=== PATIENT | female | born 1975 | race Caucasian/White ===

== ENCOUNTER → 2016-11-08 | Outpatient (REF) | payer OTHER | LOC: M SFHCLERA 18:37 | PROVIDERS: ATTEND Nurse Practitioner Family | DX: T81.4XXA Infection following a procedure, initial encounter (principal); X58.XXXA Exposure to other specified factors, initial encounter; Y93.9 Activity, unspecified; Y92.9 Unspecified place or not applicable; Y99.8 Other external cause status ==

== ENCOUNTER → 2016-12-14 | Outpatient (CLI) | payer OTHER ==
--- NOTE | 2017-01-12 01:00 | ECWPNPC ---
PATIENT NAME: SENG BUENO : 1975 GENDER: FEMALE VISIT DATE: 12/14/2016 DISCHARGE DATE: 12/14/16 1417 VISIT LOCKED DATE TIME: PHYSICIAN: SOLEDAD AU RESOURCE: SOLEDAD AU REASON FOR APPOINTMENT 1. BILATERAL SHOULDER PAIN HISTORY OF PRESENT ILLNESS TODAY'S VISIT: NOTES: REFERRED BY [facility] FOR CHRONIC LEFT ANTERIOR SHOULDER PAIN WITH HX OF LABRUM TEAR AND DEGENERATIVE CHANGES ON MRI. IS CURRENTLY BEING SEEN BY DR. GE[place]NA DOWNS AT [facility] [place] AND RIGHT SHOULDER SURGERY IS SCHEDULED FOR 12/17/16HAD NEW MRI OF LEFT SHOULDER MRI LAST WEEK WHICH SHOWED NEW TEARS. INJURY OCCURED IN 2007 WITH DAMAGE TO BOTH SHOULDERS. HAD RECENT SURGERY TO LEFT SHOULDER 10/30/16. NO CURRENT PT THIS AREA IS STILL IN NEED OF SURGICAL INTERVENTION. IS NOT ABLE TO SLEEP, ESPECIALLY IN BED. HAS TRAPEZIUS MUSCLE BURNING DISCOMFORT BILATERALLY. IS ALSO EXPERIENCING NECK PAIN AND HEADACHES. HAS CONSTANT ACHE IN SHOULDERS - FEELS LIKE ITS CAUGHT. IS HAVING SORENESS IN WRISTS AND ELBOWS. HANDS ARE SWELLING. HAS USED MUSCLE RELAXERS AND RARE VALIUM. THIS HAS NOT BEEN HELPFUL. CURRENT MEDICATIONS TAKING IBUPROFEN 800 MG TABLET 1 TABLET WITH FOOD OR MILK ORALLY THREE TIMES A DAY TAKING ROXICODONE 5 MG TABLET 1 TABLET ORALLY EVERY 6 HRS TAKING OXYCODONE-ACETAMINOPHEN 5-325 MG TABLET 1 TABLET NEEDED ORALLY EVERY 6 HRS TAKING SENOKOT 8.6 MG TABLET 2 TABLETS AT BEDTIME NEEDED ORALLY ONCE A DAY NOT-TAKING BACTRIM DS 800-160 MG TABLET 1 TABLET ORALLY BID MEDICATION LIST REVIEWED AND RECONCILED WITH THE PATIENT PAST MEDICAL HISTORY ? MITRAL VALVE PROLAPSE ALLERGIES CEFTIN: AIRWAY : ALLERGY SURGICAL HISTORY SHOULDER SURGERY RIGHT BICEPT TENDON REPAIR 10/2014 SHOULDER SURGERY - FROZEN SHOULDER 10/2015 SHOULDER SURGERY - LEFT - BICEPT TENDON 10/2016 SHOULDER SURGERY - RIGHT SCHEDULED PROCEDURE 11/2016 SOCIAL HISTORY GENERAL: TOBACCO USE ARE YOU A:FORMER SMOKER HOW LONG HAS IT BEEN SINCE YOU LAST SMOKED?5-10 YEARS CAFFEINE CAFFEINE USE?YES HOW OFTEN AND HOW MUCH? 2-4 CUPS PER DAY HIV / HEP-C SCREENING HIV TEST OFFERED TO PATIENT:YES DATE OFFERED:11/08/2016 TEST ACCEPTED:NO REASON:PATIENT DECLINED HEP-C TEST OFFERED TO PATIENT:NO LEARNING BARRIERS / SPECIAL NEEDS BARRIERS TO LEARNING?NO HEARING IMPAIRED?NO VISION IMPAIRED?YES :CORRECTIVE LENSES GLASSES/CONTACTS COGNITIVELY IMPAIRED?NO READINESS TO LEARN?YES LEARNING PREFERENCES?NO LEARNING CAPABILITIES PRESENT?YES EMOTIONAL BARRIERS?NO SPECIAL DEVICES?NO NET MOBILE DEVELOPER NEEDED?NO NEW PATIENT PAIN DIARY PATIENT DESCRIBES PAIN :ACHING, BURNING, HAVE IT ALL THE TIME, SHARP, STABBING, TENDER, SORE, SHOOTING FROM 0-10, WHAT LEVEL IS YOUR PAIN TODAY?8 PRECIPITATING FACTORS CERTAIN MOVEMENTS TRIGGER PAIN AND PAIN ALSO TRIGGERED WHEN SITTING STILL FOR LONG PERIODS OF TIME ALLEVIATING FACTORS ICE, PAIN MEDS IMPACT ON FUNCTION AFFECTS ALL ASPECTS OF LIFE NAME OF PERSON DRIVING YOU HOME - FEDE IS THERE A CHANCE YOU COULD BE ? NO HAVE YOU BEEN SICK IN THE LAST WEEK (COLD, COUGH, FEVER, FLU, ETC) NO DO YOU TAKE ANY BLOOD THINNERS? NO DO YOU HAVE ANY RASHES OR OPEN SORES? NO ANY CHANGE IN BOWEL OR BLADDER CONTROL? CONSTIPATION ARE YOU ALLERGIC TO SHELLFISH OR IV DYE? NO ARE YOU DIABETIC? NO DO YOU HAVE A PACEMAKER OR DEFIBRILLATOR? NO ANY NEW PROBLEMS WITH MEDICINES OR NEW ALLERGIES NO ANY NEW PATTERNS OF PAIN OR NUMBNESS? PT STATES THAT MUSCLES IN CHEST AND UPPER BACK ARE IN CONSTANT STATE OF SPASM ANY CHANGE IN YOUR MEDICAL CONDITION? NO HAVE YOU FALLEN IN THE LAST 6 MONTHS? NO DO YOU USE ANY TYPE OF TOBACCO (SMOKE, SMOKELESS, CHEW, ETC.) NO ARE YOU ABUSED, NEGLECTED, OR IN AN UNSAFE ENVIRONMENT? NO DO YOU HAVE THOUGHTS OF HURTING YOURSELF OR SOMEONE ELSE? NO DO YOU NEED ANY PRESCRIPTIONS? PAIN MEDICATIONS, CONSTIPATION MEDICATIONS INTENSITY SCALE REVIEWED YES PAIN CLINIC PFS, CLERGY, PUBLIC HEALTH REFERRALS WAS THE PROVIDER NOTIFIED OF ANY PERTINENT INFO?YES HAS THE PATIENT BEEN EDUCATED REGARDING HIS/HER PLAN OF CARE?YES PLEASE DOCUMENT ANY ADDTIONAL DETAILS. ORIENTED TO PAIN CENTER, PAIN SCALE, AND STAFF HAS THE PATIENT BEEN EDUCATED REGARDING PAIN, THE RISK FOR PAIN, THE IMPORTANCE OF EFFECTIVE PAIN MANAGEMENT, AND THE PAIN ASSESSMENT PROCESS?YES PLEASE DOCUMENT ANY ADDTIONAL DETAILS. PT SCHEDULES, TREATMENT PLAN AND PAIN MANAGEMENT REVIEWED BY: NITHIN. HOSPITALIZATION/MAJOR DIAGNOSTIC PROCEDURE SHOULDER SURGERY WITH INTENSE PHYSICAL THERAPY 10/2015 REVIEW OF SYSTEMS FOLLOW-UP ROS: CARDIOLOGY: POSITIVE FOR HX OF MITRAL PROLAPSE. NO, NO PALPITATIONS . ENDOCRINOLOGY: NEGATIVE FOR DIABETES, , NEGATIVE FOR THYROID DYSFUNCTION . GI/ POSITIVE FOR, CONSTIPATION SECONDARY TO MEDS, NO HEME . NEUROLOGY: POSITIVE FOR, HEADACHES, NO SEIZURES - NO HI . PULMONOLOGY: NEGATIVE FOR, ASTHMA, BREATHING PROBLEMS, COUGH . PSYCHOLOGY: BECKS DEPRESSION INVENTORY DENIES SUICIDAL OR HOMICIDAL IDEATION . VITAL SIGNS WT 199 LBS, HT 69 IN, BMI 29.38 INDEX, BP 127/75 MM HG, HR 76 /MIN, RR 18 /MIN, TEMP 98.7 F, OXYGEN SAT % 100%, SAFE IN ENV? (Y/N) Y, NA INITIALS TX 13:13, REVIEWED BY: NITHIN. EXAMINATION GENERAL EXAMINATION: GENERAL APPEARANCE:WELL GROOMED, PLEASANT TO INTERACT WITH . PSYCHALERT , ORIENTED X 3 , APPROPRIATE MOOD AND AFFECT , EXCELLANT HISTORIAN . HEENT:NORMOCEPHALIC, NO LMPHADENOPATHY, NO THYROMEGLY . LUNGS:CLEAR TO AUSCULTATION BILATERALLY, NO WHEEZES, RALES OR RHONCHI . HEART:NORMAL S1S2, NO MURMURS, CLICK OR RUBS, NO CAROTID BRUITS . MUSCULOSKELETAL:WEAKNESS IN WITH FLEXION AND EXTENSION AT LEFT WRIST AND ELBOW. VERY POOR ROM AT BOT THOULDERS . EXQ TENDER OVER LEFT AC JOINT, BICEPS AND AT THE BICEPS TENDON ATTACHMENT. ABLE TO ABDUCT RIGHT SHOULDER TO 60 DEGREES, LEFT SHOULDER TO 30 DEGREES. TRIGGER POINTS AND TIGHT FIBROUS BANDS IDENTIFIED OVER BILATER TRAPEZIUS AND SUPRASCALENE MUSCLES BILATERALLY. . EXTREMITIES:NO EDEMA UPPER/LOWER EXTREMITIES. 2+ RADIAL PULSES BILATERALLY . SKIN:DRY, WARM, NO RASH OR SKIN LESIONS. NEUROLOGIC EXAM:CN'S II-XII GROSSLY INTACT. HYPERSENSITIVITY TO LIGHT TOUCH OVER BILATERAL AC JOINTS, RIGHT BICEPS . DIAGNOSTIC TESTS REVIEWEDMRI OF LEFT SHOULDER COMPLETED ON 08/28/16 DEMONSTRATES PARTIAL THICKNESS INTERSTITIAL TEAR OF THE SUPRSPINATUS TENDON. MILD INFRASPINATUS TENDINOPATHY WITHOUT TEAR. LATERAL ACROMIAL DOWNSLOPING WITH SMALL UNDERSURFACE OSTEOPHYTE RESULTS IN NARROWING OF THE SUBACROMIAL OUTLET . ASSESSMENTS LEFT ANTERIOR SHOULDER PAIN - M25.512 (PRIMARY) MYALGIA - M79.1 TREATMENT LEFT ANTERIOR SHOULDER PAIN START MOVANTIK TABLET, 25 MG, 1 TABLET IN THE MORNING, ORALLY, ONCE A DAY, 30 DAY(S), 30, REFILLS 0 START TIZANIDINE HCL TABLET, 4 MG, 1 TABLET NEEDED, ORALLY, THREE TIMES A DAY, 30 DAY(S), 90 TABLET, REFILLS 0 NOTES: MASSAGE THERAPY TO UPPER BACK, NECK, ANTERIOR CHEST WALL. CONSIDER BHAVESH [facility] - [phone] TIZANIDINE 1/2 - 1 TAB IN MORNING AND MIDDAY - 1 TO 11/2 TABS AT BEDTIME. CLINICAL NOTES: OFFICE NOTES, PHYSICAL EXAM AND TREATMENT PLANS REVIEWED FROM DOCUMENTATION OF DR GEORGIANA DOWNS, [facility] AND FROM [facility] RENU SCHMITZ MD, ISTOP REGISTRY REVIEWED AND DEMNOSTRATES COMPLLIANCE. PROCEDURE CODES FA211 ESTABILISHED PATIENT [facility] CHARGE DISPOSITION & COMMUNICATION FOLLOW UP 1 MONTH ELECTRONICALLY SIGNED BY TOÑA DE LA TORRE ON 01/11/2017 AT 05:49 PM EDT DISCLAIMER : THIS IS A VISIT SUMMARY EXTRACTED FROM THE [employer] CHART. IT IS NOT A COPY OF THE [employer] PROGRESS NOTE. CALEB
== END ==
LOC: M PAIN 12:30
PROVIDERS: ATTEND Nurse Practitioner Family
DX: M25.512 Pain in left shoulder (principal); M79.1 Myalgia; I34.1 Nonrheumatic mitral (valve) prolapse; R51 Headache; Z79.891 Long term (current) use of opiate analgesic; Z79.899 Other long term (current) drug therapy; Z87.891 Personal history of nicotine dependence; Z88.1 Allergy status to other antibiotic agents

== ENCOUNTER → 2017-01-11 | Outpatient (CLI) | payer OTHER ==
--- NOTE | 2017-02-12 01:58 | ECWPNPC ---
PATIENT NAME: SENG BUENO : 1975 GENDER: FEMALE VISIT DATE: 01/11/2017 DISCHARGE DATE: 01/11/17 1110 VISIT LOCKED DATE TIME: PHYSICIAN: SOLEDAD AU RESOURCE: SOLEDAD AU HISTORY OF PRESENT ILLNESS HISTORY OF PRESENT ILLNESS: PAIN THE PATIENT DESCRIBES THE PAIN... FALL RISK SCREENING: SCREENING :NO FALLS IN THE PAST YEAR TODAY'S VISIT: NOTES: RATES PAIN TODAY 8/10. DESCRIBES PAIN CONSTANT, ACHING, BURNING, SHARP AND STABBING TENDER, THROBBING AND SORE. S/P LEFT SHOULDER SURGERY. NOTES SIG DIFF IN GETTING SLEEP. CAN NOT FIND A COMFORTABLE POSITION. IS ALSO EXPERIENCING AN SEVERE ACHINESS IN LEFT ARM WHICH STOPS AT THE WRIST. IS ATTENDING PHYSICAL THERAPY CURRENTLY. HAS BEEN TO 2 SESSIONS - MASSAGE AND "NECK CRACKING" WERE DONE. HAS NOT YET BEEN STARTED ON ANY ROM WORK. IS LIMITED IN ADL'S. CURRENT MEDICATIONS TAKING IBUPROFEN 800 MG TABLET 1 TABLET WITH FOOD OR MILK ORALLY THREE TIMES A DAY TAKING ROXICODONE 5 MG TABLET 1 TABLET ORALLY EVERY 6 HRS TAKING MOVANTIK 25 MG TABLET 1 TABLET IN THE MORNING ORALLY ONCE A DAY TAKING TIZANIDINE HCL 4 MG TABLET 1 TABLET NEEDED ORALLY TAKE 1 TO 1 1/2 TABS THREE TIMES A DAY NEEDED FOR SPASMS NOT-TAKING OXYCODONE-ACETAMINOPHEN 5-325 MG TABLET 1 TABLET NEEDED ORALLY EVERY 6 HRS NOT-TAKING SENOKOT 8.6 MG TABLET 2 TABLETS AT BEDTIME NEEDED ORALLY ONCE A DAY NOT-TAKING BACTRIM DS 800-160 MG TABLET 1 TABLET ORALLY BID MEDICATION LIST REVIEWED AND RECONCILED WITH THE PATIENT PAST MEDICAL HISTORY ? MITRAL VALVE PROLAPSE ALLERGIES CEFTIN: AIRWAY : ALLERGY SURGICAL HISTORY SHOULDER SURGERY RIGHT BICEPT TENDON REPAIR 10/2014 SHOULDER SURGERY - FROZEN SHOULDER 10/2015 SHOULDER SURGERY - LEFT - BICEPT TENDON 10/2016 SHOULDER SURGERY - RIGHT SCHEDULED PROCEDURE 11/2016 SOCIAL HISTORY GENERAL: TOBACCO USE ARE YOU A:FORMER SMOKER HOW LONG HAS IT BEEN SINCE YOU LAST SMOKED?5-10 YEARS CAFFEINE CAFFEINE USE?YES HOW OFTEN AND HOW MUCH? 2-4 CUPS PER DAY HIV / HEP-C SCREENING HIV TEST OFFERED TO PATIENT:YES DATE OFFERED:11/08/2016 TEST ACCEPTED:NO REASON:PATIENT DECLINED HEP-C TEST OFFERED TO PATIENT:NO BAHAI [id number] AGNOSTIC LEARNING BARRIERS / SPECIAL NEEDS BARRIERS TO LEARNING?NO HEARING IMPAIRED?NO VISION IMPAIRED?YES :CORRECTIVE LENSES GLASSES/CONTACTS COGNITIVELY IMPAIRED?NO READINESS TO LEARN?YES LEARNING PREFERENCES?NO LEARNING CAPABILITIES PRESENT?YES EMOTIONAL BARRIERS?NO SPECIAL DEVICES?NO VISITOR SERVICES COORDINATOR NEEDED?NO NEW PATIENT PAIN DIARY PATIENT DESCRIBES PAIN :ACHING, BURNING, HAVE IT ALL THE TIME, SHARP, STABBING, TENDER, SORE, SHOOTING FROM 0-10, WHAT LEVEL IS YOUR PAIN TODAY?8 PRECIPITATING FACTORS CERTAIN MOVEMENTS TRIGGER PAIN AND PAIN ALSO TRIGGERED WHEN SITTING STILL FOR LONG PERIODS OF TIME ALLEVIATING FACTORS ICE, PAIN MEDS IMPACT ON FUNCTION AFFECTS ALL ASPECTS OF LIFE NAME OF PERSON DRIVING YOU HOME - FEDE IS THERE A CHANCE YOU COULD BE ? NO HAVE YOU BEEN SICK IN THE LAST WEEK (COLD, COUGH, FEVER, FLU, ETC) NO DO YOU TAKE ANY BLOOD THINNERS? NO DO YOU HAVE ANY RASHES OR OPEN SORES? NO ANY CHANGE IN BOWEL OR BLADDER CONTROL? CONSTIPATION ARE YOU ALLERGIC TO SHELLFISH OR IV DYE? NO ARE YOU DIABETIC? NO DO YOU HAVE A PACEMAKER OR DEFIBRILLATOR? NO ANY NEW PROBLEMS WITH MEDICINES OR NEW ALLERGIES NO ANY NEW PATTERNS OF PAIN OR NUMBNESS? PT STATES THAT MUSCLES IN CHEST AND UPPER BACK ARE IN CONSTANT STATE OF SPASM ANY CHANGE IN YOUR MEDICAL CONDITION? NO HAVE YOU FALLEN IN THE LAST 6 MONTHS? NO DO YOU USE ANY TYPE OF TOBACCO (SMOKE, SMOKELESS, CHEW, ETC.) NO ARE YOU ABUSED, NEGLECTED, OR IN AN UNSAFE ENVIRONMENT? NO DO YOU HAVE THOUGHTS OF HURTING YOURSELF OR SOMEONE ELSE? NO DO YOU NEED ANY PRESCRIPTIONS? PAIN MEDICATIONS, CONSTIPATION MEDICATIONS INTENSITY SCALE REVIEWED YES PAIN CLINIC PFS, CLERGY, PUBLIC HEALTH REFERRALS PFS REFERRAL NEEDED?NO CLERGY REFERRAL NEEDED?NO PUBLIC HEALTH REFERRAL NEEDED?NO WAS THE PROVIDER NOTIFIED OF ANY PERTINENT INFO?NO HAS THE PATIENT BEEN EDUCATED REGARDING HIS/HER PLAN OF CARE?YES PLEASE DOCUMENT ANY ADDTIONAL DETAILS. ORIENTED TO PAIN CENTER, PAIN SCALE, AND STAFF HAS THE PATIENT BEEN EDUCATED REGARDING PAIN, THE RISK FOR PAIN, THE IMPORTANCE OF EFFECTIVE PAIN MANAGEMENT, AND THE PAIN ASSESSMENT PROCESS?YES PLEASE DOCUMENT ANY ADDTIONAL DETAILS. PT SCHEDULES, TREATMENT PLAN AND PAIN MANAGEMENT REVIEWED BY: DS. HOSPITALIZATION/MAJOR DIAGNOSTIC PROCEDURE SHOULDER SURGERY WITH INTENSE PHYSICAL THERAPY 10/2015 REVIEW OF SYSTEMS REVIEWED BY: PROVIDER: SOLEDAD ALEJANDRO . CONSTITUTIONAL: ANY CHANGE IN YOUR MEDICAL CONDITION? NO . CHILLS NO . FEVER NO . INFECTION: DO YOU HAVE NEW INFECTIONS? NO . DO YOU HAVE HISTORY OF MRSA? NO . MUSCULOSKELETAL: ANY NEW PATTERNS OF PAIN OR NUMBNESS? PAIN SHOOTING DOWN LEFT ARM THAT WAS OPERATED ON . GASTROENTEROLOGY: ANY NEW CHANGE IN BOWEL CONTROL? NO - CONSTIPATION IMPROVED WITH MOVANTIK . GENITOURINARY: ANY NEW CHANGE IN BLADDER CONTROL? NO . IS THERE A CHANCE YOU COULD BE ? NO . HEMATOLOGY/LYMPH: DO YOU TAKE ANY BLOOD THINNERS? (FOR EXAMPLE- COUMADIN, PLAVIX, AGGRENOX, PLATEL, PRADAXA, OR XARELTO) NO . WHEN WAS YOUR LAST DOSE? DATE: TIME: . NEUROLOGY: HAVE YOU FALLEN IN THE PAST 6 MONTHS? NO . ANY NEW EXTREMITY NUMBNESS OR WEAKNESS? NO . CARDIOLOGY: DO YOU HAVE A PACEMAKER OR DEFIBRILLATOR? NO . RESPIRATORY: HAVE YOU BEEN SICK IN THE PAST WEEK? NO . FEVER NO . FLU LIKE SYMPTOMS? NO . COUGH NO . INTEGUMENTARY: DO YOU HAVE ANY RASHES OR OPEN SORES? NO . ALLERGIC/IMMUNO: ARE YOU ALLERGIC TO SHELLFISH OR IV DYE? NO . ANY NEW ALLERGIES? NO . PSYCHIATRIC: DO YOU HAVE THOUGHTS OF HURTING YOURSELF OR SOMEONE ELSE? NO . ARE YOU ABUSED, NEGLECTED, OR IN AN UNSAFE ENVIRONMENT? NO . ENDOCRINOLOGY: ARE YOU DIABETIC? NO . OTHER: DO YOU NEED ANY PRESCRIPTIONS? NO . IF YES, PLEASE LIST: ____ . ANY NEW PROBLEMS WITH YOUR MEDICATIONS? NO . WHEN DID YOU LAST EAT? ____ . WHEN DID YOU LAST DRINK? ____ . WHAT DID YOU LAST DRINK? ____ . NAME OF PERSON DRIVING YOU HOME? ____ . DO YOU HAVE ANY OTHER QUESTIONS OR CONCERNS NO . VITAL SIGNS WT 199 LBS, HT 69 IN, BMI 29.38 INDEX, BP 120/80 MM HG, HR 78 /MIN, RR 18 /MIN, TEMP 97.7 F, OXYGEN SAT % 99%, NA INITIALS AW 1012, REVIEWED BY: NL. EXAMINATION GENERAL EXAMINATION: PSYCHALERT , ORIENTED X 3 , APPROPRIATE MOOD AND AFFECT . LUNGS:CLEAR TO AUSCULTATION BILATERALLY, NO WHEEZES, RALES OR RHONCHI . HEART:NORMAL S1S2, NO MURMURS, CLICK OR RUBS, NO CAROTID BRUITS . MUSCULOSKELETAL:WEAKNESS IN BILATERAL UPPER EXTREMITIES WITH FLEXION AND EXTENSION AT LEFT WRIST AND ELBOW. VERY POOR ROM AT BOTH THOULDERS . EXQUISITE TENDER OVER LEFT AC JOINT, BICEPS AND AT THE BICEPS TENDON ATTACHMENT. ABLE TO ABDUCT RIGHT SHOULDER TO 60 DEGREES, LEFT SHOULDER TO 30 DEGREES. TRIGGER POINTS AND TIGHT FIBROUS BANDS IDENTIFIED OVER BILATER TRAPEZIUS AND SUPRASCALENE MUSCLES BILATERALLY. . EXTREMITIES:NO EDEMA UPPER/LOWER EXTREMITIES. 2+ RADIAL PULSES BILATERALLY . SKIN:DRY, WARM, NO RASH OR SKIN LESIONS. NEUROLOGIC EXAM:CN'S II-XII GROSSLY INTACT. HYPERSENSITIVITY TO LIGHT TOUCH OVER BILATERAL AC JOINTS, RIGHT BICEPS . ASSESSMENTS LEFT ANTERIOR SHOULDER PAIN - M25.512 (PRIMARY) MYOFASCIAL PAIN - M79.1 CHRONIC PRESCRIPTION OPIATE USE - Z79.891 TREATMENT LEFT ANTERIOR SHOULDER PAIN STOP ROXICODONE TABLET, 5 MG, 1 TABLET, ORALLY, EVERY 6 HRS START NUCYNTA TABLET, 75 MG, 1 TABLET, ORALLY, EVERY 6 HRS PRN PAIN MDD=4, 15 DAYS, 60, REFILLS 0 REFILL MOVANTIK TABLET, 25 MG, 1 TABLET IN THE MORNING, ORALLY, ONCE A DAY, 30 DAY(S), 30, REFILLS 0 REFILL TIZANIDINE HCL TABLET, 4 MG, 1 TABLET NEEDED, ORALLY, TAKE 1 TO 1 1/2 TABS THREE TIMES A DAY NEEDED FOR SPASMS, 30 DAY(S), 135, REFILLS 1 NOTES: NARCOTIC AGREEMENT TODAYURINE TOX TODAYCALL SURGEON REGARDING PHYSICAL THERAPY REQUIREMNTS - WHAT EXACTLY TO DO WITH THE SHOULDER. CLINICAL NOTES: ISTOP REGISTRY REVIEWED AND DEMNOSTRATES COMPLLIANCE (REF # [id number]). DENIES USE OF ILICIT SUBSTANCES. , RISKS AND BENEFITS OF NARCOTIC/OPIOD MEDICATIONS WERE REVIEWED WITH PATIENT - THIS INCLUDES BUT IS NOT LIMITED TO RISK OF DEPENDANCE/DEVELOPMENT OF ADDICTION, MOOD DISTURBANCE AND DEPRESSION, OSTEOPOROSIS, HORMONAL AND LABIDAL CHANGES, RESPIRATORY DEPRESSION AND . PATIENT IS ADVISED NOT TO DRIVE WHILE ON THESE MEDICATIONS. PROCEDURE CODES FA211 ESTABILISHED PATIENT [facility] CHARGE DISPOSITION & COMMUNICATION FOLLOW UP 26-28 DAYS (REASON: SHOULDER PAIN) ELECTRONICALLY SIGNED BY TOÑA DE LA TORRE ON 02/11/2017 AT 08:45 PM EST DISCLAIMER : THIS IS A VISIT SUMMARY EXTRACTED FROM THE [employer] CHART. IT IS NOT A COPY OF THE [employer] PROGRESS NOTE. MTDD
== END ==
LOC: M PAIN 09:45
PROVIDERS: ATTEND Nurse Practitioner Family
DX: M25.512 Pain in left shoulder (principal); M79.1 Myalgia; Z79.891 Long term (current) use of opiate analgesic; Z79.899 Other long term (current) drug therapy; Z87.891 Personal history of nicotine dependence; Z88.1 Allergy status to other antibiotic agents

== ENCOUNTER → 2017-02-15 | Outpatient (CLI) | payer OTHER ==
--- NOTE | 2017-02-18 00:27 | ECWPNPC ---
PATIENT NAME: SENG BUENO : 1975 GENDER: FEMALE VISIT DATE: 02/15/2017 DISCHARGE DATE: 02/15/17 1353 VISIT LOCKED DATE TIME: PHYSICIAN: SOLEDAD AU RESOURCE: SOLEDAD AU REASON FOR APPOINTMENT 1. SHOULDER PAIN HISTORY OF PRESENT ILLNESS HISTORY OF PRESENT ILLNESS: PAIN THE PATIENT DESCRIBES THE PAIN... FALL RISK SCREENING: SCREENING :NO FALLS IN THE PAST YEAR TODAY'S VISIT: NOTES: RATES PAIN 7/10 R AND 8/10 L SHOULDER. IS BEING SCHULED FOR SHOULDER MANIPULATION UNDER ANESTHESIA IN NEAR FUTURE AND THEN PLANS TO BE OUT OF TOWN FOR AN EXTRENDED PERIOD. IS STILL IN PT FOR RIGHT SHOULDER - BETTER ROM AND PAIN LEVELS. LEFT SH IS VERY POOR AND VERY POOR SLEEP. CURRENT MEDICATIONS TAKING TIZANIDINE HCL 4 MG TABLET 1 TABLET NEEDED ORALLY TAKE 1 TO 1 1/2 TABS THREE TIMES A DAY NEEDED FOR SPASMS TAKING IBUPROFEN 800 MG TABLET 1 TABLET WITH FOOD OR MILK ORALLY THREE TIMES A DAY TAKING NORCO 10-325 MG TABLET 1 TABLET NEEDED ORALLY EVERY 6 HRS PRN MDD4 NOT-TAKING OXYCODONE-ACETAMINOPHEN 5-325 MG TABLET 1 TABLET NEEDED ORALLY EVERY 6 HRS NOT-TAKING NUCYNTA 75 MG TABLET 1 TABLET ORALLY EVERY 6 HRS PRN PAIN MDD=4, NOTES: MADE HER SICK/ NAUSEA AND HEADACHE NOT-TAKING MOVANTIK 25 MG TABLET 1 TABLET IN THE MORNING ORALLY ONCE A DAY NOT-TAKING SENOKOT 8.6 MG TABLET 2 TABLETS AT BEDTIME NEEDED ORALLY ONCE A DAY NOT-TAKING BACTRIM DS 800-160 MG TABLET 1 TABLET ORALLY BID MEDICATION LIST REVIEWED AND RECONCILED WITH THE PATIENT PAST MEDICAL HISTORY ? MITRAL VALVE PROLAPSE ALLERGIES CEFTIN: AIRWAY : ALLERGY SOCIAL HISTORY GENERAL: TOBACCO USE ARE YOU A:FORMER SMOKER HOW LONG HAS IT BEEN SINCE YOU LAST SMOKED?5-10 YEARS CAFFEINE CAFFEINE USE?YES HOW OFTEN AND HOW MUCH? 2-4 CUPS PER DAY HIV / HEP-C SCREENING HIV TEST OFFERED TO PATIENT:YES DATE OFFERED:11/08/2016 TEST ACCEPTED:NO REASON:PATIENT DECLINED HEP-C TEST OFFERED TO PATIENT:NO ANGLICAN [id number] AGNOSTIC LEARNING BARRIERS / SPECIAL NEEDS BARRIERS TO LEARNING?NO HEARING IMPAIRED?NO VISION IMPAIRED?YES :CORRECTIVE LENSES GLASSES/CONTACTS COGNITIVELY IMPAIRED?NO READINESS TO LEARN?YES LEARNING PREFERENCES?NO LEARNING CAPABILITIES PRESENT?YES EMOTIONAL BARRIERS?NO SPECIAL DEVICES?NO PSYCHOLOGIST MILITARY PERSONNEL NEEDED?NO NEW PATIENT PAIN DIARY PATIENT DESCRIBES PAIN :ACHING, BURNING, HAVE IT ALL THE TIME, SHARP, STABBING, TENDER, SORE, SHOOTING FROM 0-10, WHAT LEVEL IS YOUR PAIN TODAY?8 PRECIPITATING FACTORS CERTAIN MOVEMENTS TRIGGER PAIN AND PAIN ALSO TRIGGERED WHEN SITTING STILL FOR LONG PERIODS OF TIME ALLEVIATING FACTORS ICE, PAIN MEDS IMPACT ON FUNCTION AFFECTS ALL ASPECTS OF LIFE NAME OF PERSON DRIVING YOU HOME - FEDE IS THERE A CHANCE YOU COULD BE ? NO HAVE YOU BEEN SICK IN THE LAST WEEK (COLD, COUGH, FEVER, FLU, ETC) NO DO YOU TAKE ANY BLOOD THINNERS? NO DO YOU HAVE ANY RASHES OR OPEN SORES? NO ANY CHANGE IN BOWEL OR BLADDER CONTROL? CONSTIPATION ARE YOU ALLERGIC TO SHELLFISH OR IV DYE? NO ARE YOU DIABETIC? NO DO YOU HAVE A PACEMAKER OR DEFIBRILLATOR? NO ANY NEW PROBLEMS WITH MEDICINES OR NEW ALLERGIES NO ANY NEW PATTERNS OF PAIN OR NUMBNESS? PT STATES THAT MUSCLES IN CHEST AND UPPER BACK ARE IN CONSTANT STATE OF SPASM ANY CHANGE IN YOUR MEDICAL CONDITION? NO HAVE YOU FALLEN IN THE LAST 6 MONTHS? NO DO YOU USE ANY TYPE OF TOBACCO (SMOKE, SMOKELESS, CHEW, ETC.) NO ARE YOU ABUSED, NEGLECTED, OR IN AN UNSAFE ENVIRONMENT? NO DO YOU HAVE THOUGHTS OF HURTING YOURSELF OR SOMEONE ELSE? NO DO YOU NEED ANY PRESCRIPTIONS? PAIN MEDICATIONS, CONSTIPATION MEDICATIONS INTENSITY SCALE REVIEWED YES PAIN CLINIC PFS, CLERGY, PUBLIC HEALTH REFERRALS PFS REFERRAL NEEDED?NO CLERGY REFERRAL NEEDED?NO PUBLIC HEALTH REFERRAL NEEDED?NO WAS THE PROVIDER NOTIFIED OF ANY PERTINENT INFO?NO HAS THE PATIENT BEEN EDUCATED REGARDING HIS/HER PLAN OF CARE?YES PLEASE DOCUMENT ANY ADDTIONAL DETAILS. ORIENTED TO PAIN CENTER, PAIN SCALE, AND STAFF HAS THE PATIENT BEEN EDUCATED REGARDING PAIN, THE RISK FOR PAIN, THE IMPORTANCE OF EFFECTIVE PAIN MANAGEMENT, AND THE PAIN ASSESSMENT PROCESS?YES PLEASE DOCUMENT ANY ADDTIONAL DETAILS. PT SCHEDULES, TREATMENT PLAN AND PAIN MANAGEMENT REVIEWED BY: NITHIN. REVIEW OF SYSTEMS REVIEWED BY: PROVIDER: SOLEDAD ALEJANDRO . CONSTITUTIONAL: ANY CHANGE IN YOUR MEDICAL CONDITION? NO . CHILLS NO . FEVER NO . INFECTION: DO YOU HAVE NEW INFECTIONS? NO . DO YOU HAVE HISTORY OF MRSA? NO . MUSCULOSKELETAL: ANY NEW PATTERNS OF PAIN OR NUMBNESS? YES, NERVE IMPINGEMENT TO LEFT SHOULDER/ SATURDAY WILL BE HAVING SURGERY. NO INCISION MAIPULATION ONLY . GASTROENTEROLOGY: ANY NEW CHANGE IN BOWEL CONTROL? NO . GENITOURINARY: ANY NEW CHANGE IN BLADDER CONTROL? NO . IS THERE A CHANCE YOU COULD BE ? NO . HEMATOLOGY/LYMPH: DO YOU TAKE ANY BLOOD THINNERS? (FOR EXAMPLE- COUMADIN, PLAVIX, AGGRENOX, PLATEL, PRADAXA, OR XARELTO) NO . WHEN WAS YOUR LAST DOSE? DATE: TIME: . NEUROLOGY: HAVE YOU FALLEN IN THE PAST 6 MONTHS? NO . ANY NEW EXTREMITY NUMBNESS OR WEAKNESS? NO . CARDIOLOGY: DO YOU HAVE A PACEMAKER OR DEFIBRILLATOR? NO . RESPIRATORY: HAVE YOU BEEN SICK IN THE PAST WEEK? NO . FEVER NO . FLU LIKE SYMPTOMS? NO . COUGH NO . INTEGUMENTARY: DO YOU HAVE ANY RASHES OR OPEN SORES? NO . ALLERGIC/IMMUNO: ARE YOU ALLERGIC TO SHELLFISH OR IV DYE? NO . ANY NEW ALLERGIES? NO . PSYCHIATRIC: DO YOU HAVE THOUGHTS OF HURTING YOURSELF OR SOMEONE ELSE? NO . ARE YOU ABUSED, NEGLECTED, OR IN AN UNSAFE ENVIRONMENT? NO . ENDOCRINOLOGY: ARE YOU DIABETIC? NO . OTHER: DO YOU NEED ANY PRESCRIPTIONS? YES . IF YES, PLEASE LIST: WOULD LIKE TO SWITCH BACK TO ROXICODONE . ANY NEW PROBLEMS WITH YOUR MEDICATIONS? NO . WHEN DID YOU LAST EAT? ____ . WHEN DID YOU LAST DRINK? ____ . WHAT DID YOU LAST DRINK? ____ . NAME OF PERSON DRIVING YOU HOME? ____ . DO YOU HAVE ANY OTHER QUESTIONS OR CONCERNS GOING OUT OF TOWN FOR OVER A MONTH . VITAL SIGNS WT 203.2 LBS, HT 69 IN, BMI 30.00 INDEX, BP 146/89 MM HG, REPEAT BP 128/80 MANUAL, HR 87 /MIN, RR 16 /MIN, TEMP 98.1 F, OXYGEN SAT % 100%, NA INITIALS TL 1307, REVIEWED BY: NL. EXAMINATION GENERAL EXAMINATION: PSYCHALERT , ORIENTED X 3 , APPROPRIATE MOOD AND AFFECT . LUNGS:CLEAR TO AUSCULTATION BILATERALLY, NO WHEEZES, RALES OR RHONCHI . HEART:NORMAL S1S2, NO MURMURS, CLICK OR RUBS, NO CAROTID BRUITS . MUSCULOSKELETAL:WEAKNESS IN BILATERAL UPPER EXTREMITIES WITH FLEXION AND EXTENSION AT LEFT WRIST AND ELBOW. VERY POOR ROM AT BOTH THOULDERS . EXQUISITE TENDER OVER LEFT AC JOINT, BICEPS AND AT THE BICEPS TENDON ATTACHMENT. TRIGGER POINTS AND TIGHT FIBROUS BANDS IDENTIFIED OVER BILATER TRAPEZIUS AND SUPRASCALENE MUSCLES BILATERALLY. . EXTREMITIES:NO EDEMA UPPER/LOWER EXTREMITIES. 2+ RADIAL PULSES BILATERALLY . SKIN:DRY, WARM, NO RASH OR SKIN LESIONS . NEUROLOGIC EXAM:CN'S II-XII GROSSLY INTACT. HYPERSENSITIVITY TO LIGHT TOUCH OVER BILATERAL AC JOINTS, RIGHT BICEPS . ASSESSMENTS LEFT ANTERIOR SHOULDER PAIN - M25.512 (PRIMARY) MYOFASCIAL PAIN - M79.1 CHRONIC PRESCRIPTION OPIATE USE - Z79.891 TREATMENT LEFT ANTERIOR SHOULDER PAIN REFILL TIZANIDINE HCL TABLET, 4 MG, 1 TABLET NEEDED, ORALLY, TAKE 1 TO 1 1/2 TABS THREE TIMES A DAY NEEDED FOR SPASMS FOR 3 MONTHS SUPPLY CODE D CHRONIC PAIN, 30 DAY(S), 405, REFILLS 1 START OXYCODONE HCL TABLET, 10 MG, 1 TABLET NEEDED, ORALLY, EVERY 4 HRS PRN PAIN MDD=6, 30 DAY(S), 180, REFILLS 0 NOTES: USE HYDROCODONE TIL SURGERY. AFTER SURGERY OXYCODONE 10 MG EVERY 4 HOURS NEEDED FOR 2 WEEKS , THEN START DECREASING TO 1 EVERY 6 HOYS, THEN 1/2 TAB EVERY 6 HOURS. USE BIOFREEZE TO NECK AND SHOULDER AREAS. CLINICAL NOTES: ISTOP REGISTRY REVIEWED AND DEMNOSTRATES COMPLLIANCE. ((REF # [id number]) BRINGS IN MEDICATIONS WHICH IS APPROPRIATE FOR WHAT WAS DISPENSED. RECENT URINE TOXICOLOGY REVIEWED. NO UNAUTHORIZED MEDICATIONS. NO ILLICIT SUBSTANCES AND PRESCRIBED MEDICATIONS WERE PRESENT. PROCEDURE CODES FA211 ESTABILISHED PATIENT [facility] CHARGE DISPOSITION & COMMUNICATION FOLLOW UP April (REASON: SHOULDER) ELECTRONICALLY SIGNED BY TOÑA DE LA TORRE ON 02/17/2017 AT 06:38 PM EST DISCLAIMER : THIS IS A VISIT SUMMARY EXTRACTED FROM THE [employer] CHART. IT IS NOT A COPY OF THE [employer] PROGRESS NOTE. CALEB
== END ==
LOC: M PAIN 13:00
PROVIDERS: ATTEND Nurse Practitioner Family
DX: G89.29 Other chronic pain (principal); M25.512 Pain in left shoulder; M79.1 Myalgia; Z79.891 Long term (current) use of opiate analgesic; Z79.1 Long term (current) use of non-steroidal anti-inflammatories (NSAID); Z79.899 Other long term (current) drug therapy; Z87.891 Personal history of nicotine dependence; Z88.1 Allergy status to other antibiotic agents

== ENCOUNTER → 2017-04-30 | Outpatient (CLI) | payer OTHER | LOC: M PAIN 13:30 | DX: M25.512 Pain in left shoulder (principal); M79.1 Myalgia; Z79.891 Long term (current) use of opiate analgesic; Z79.899 Other long term (current) drug therapy; Z88.8 Allergy status to other drugs, medicaments and biological substances | CPT/HCPCS: G0463 ==

== ENCOUNTER → 2017-05-09 | Outpatient (CLI) | payer OTHER | LOC: M RAD 15:10 | DX: Z12.31 Encounter for screening mammogram for malignant neoplasm of breast (principal); Z80.3 Family history of malignant neoplasm of breast | CPT/HCPCS: 77067 ==

== ENCOUNTER → 2017-05-30 | Outpatient (CLI) | payer OTHER | LOC: M PAIN 13:15 | DX: M25.512 Pain in left shoulder (principal); M79.1 Myalgia; Z79.891 Long term (current) use of opiate analgesic; Z79.899 Other long term (current) drug therapy; Z88.8 Allergy status to other drugs, medicaments and biological substances | CPT/HCPCS: G0463 ==

== ENCOUNTER → 2017-07-17 | Outpatient (CLI) | payer OTHER | END | disposition home or self-care (01) | LOC: M PAIN 13:00 | DX: G89.29 Other chronic pain (principal); M25.512 Pain in left shoulder; M79.1 Myalgia; Z88.1 Allergy status to other antibiotic agents; Z87.891 Personal history of nicotine dependence | CPT/HCPCS: G0463 ==

== ENCOUNTER 2017-09-13 09:33 | Day surgery (SDC) | payer OTHER ==
[2017-09-13] MEDS: NS 1,000 ML IV (10:00)
[2017-09-13] MEDS ORDERED: PROPOFOL 200 MG/20 ML VIAL As Ordered ×2 (11:08)
== END 2017-09-13 11:55 | disposition home or self-care (01) ==
LOC: M OPP 09:33
DX: K92.1 Melena (principal); K59.00 Constipation, unspecified; R06.02 Shortness of breath; Z79.891 Long term (current) use of opiate analgesic; Z79.899 Other long term (current) drug therapy; Z91.89 Other specified personal risk factors, not elsewhere classified; Z88.8 Allergy status to other drugs, medicaments and biological substances; Z91.048 Other nonmedicinal substance allergy status; Z98.890 Other specified postprocedural states
CPT/HCPCS: 45378

== ENCOUNTER → 2017-10-16 | Outpatient (CLI) | payer OTHER | LOC: M PAIN 10:45 | DX: M25.512 Pain in left shoulder (principal); M79.1 Myalgia; M13.0 Polyarthritis, unspecified; J06.9 Acute upper respiratory infection, unspecified; Z79.891 Long term (current) use of opiate analgesic; Z20.818 Contact with and (suspected) exposure to other bacterial communicable diseases; Z79.899 Other long term (current) drug therapy; Z88.8 Allergy status to other drugs, medicaments and biological substances; Z87.891 Personal history of nicotine dependence | CPT/HCPCS: G0463 ==

== ENCOUNTER → 2017-10-16 | Outpatient (REF) | payer OTHER | LOC: M SFHCLERA 19:44 | DX: Z20.818 Contact with and (suspected) exposure to other bacterial communicable diseases (principal) ==

== ENCOUNTER 2017-11-01 07:10 | Day surgery (SDC) | payer OTHER ==
[2017-11-01] MEDS ORDERED: LIDOCAINE 2% INJ 100 MG/5 ML SDV (FOR ANES.) As Ordered (07:11)
[2017-11-01] MEDS ORDERED: PROPOFOL 200 MG/20 ML VIAL As Ordered ×2 (07:12→08:27)
[2017-11-01] MEDS: NS 1,000 ML IV (07:26)
== END 2017-11-01 09:01 | disposition home or self-care (01) ==
LOC: M OPP 07:10
DX: K92.1 Melena (principal); K59.00 Constipation, unspecified; K64.8 Other hemorrhoids; D89.9 Disorder involving the immune mechanism, unspecified; Z87.891 Personal history of nicotine dependence; Z91.048 Other nonmedicinal substance allergy status; Z88.8 Allergy status to other drugs, medicaments and biological substances; Z79.899 Other long term (current) drug therapy; Z80.9 Family history of malignant neoplasm, unspecified
CPT/HCPCS: 45378

== ENCOUNTER → 2017-11-12 | Outpatient (CLI) | payer OTHER | LOC: M PAIN 14:30 | DX: M25.50 Pain in unspecified joint (principal); M79.1 Myalgia; Z79.891 Long term (current) use of opiate analgesic; Z79.899 Other long term (current) drug therapy; Z87.891 Personal history of nicotine dependence; Z88.1 Allergy status to other antibiotic agents | CPT/HCPCS: G0463 ==

== ENCOUNTER → 2021-01-17 | Outpatient (CLI) | payer OTHER ==
[~2021-01-17] MED LIST: NAPR-855 PO; OXYC10TA12 PO; TIZA4CAP PO; TYLE500T78 PO
== END ==
LOC: M LAB 10:41
PROVIDERS: ATTEND Student in an Organized Health Care Education/Training Program
DX: U07.1 COVID-19 (principal)